=== PATIENT | female | born 1995 | race American Indian/Alaskan Native ===

== ENCOUNTER 2025-05-19 21:32 | Emergency (ER) | payer MEDICAID ==
[~2025-05-19] VITALS: Ht 160 cm; Wt 61.0 kg
[2025-05-19 22:35] VITALS: BP 119/91
== END 2025-05-19 22:35 | disposition home or self-care (01) ==
LOC: ED 21:32
DX: S93.504A Unspecified sprain of right lesser toe(s), initial encounter (principal); Z91.040 Latex allergy status; W17.89XA Other fall from one level to another, initial encounter
CPT/HCPCS: 73660; 99283